=== PATIENT | female | born 1975 | race Caucasian/White ===

== ENCOUNTER 2017-12-22 18:22 | Inpatient (IN) | payer BC ==
[~2017-12-22] VITALS: Ht 172.7 cm; Wt 81.6 kg
[2017-12-22 18:22] VITALS: BP_SYST 112
[~2017-12-22 18:22] MED LIST: BUPIVACAINE /PF 0.25% 30 ML VIAL INJ ONE; CEFAZOLIN 1 GM IVPB PREMIX 50 ML IV ONE; DEXAMETHASONE SOD PHOSPHATE 4 MG/ML VIAL IVP ONE; GLYCOPYRROLATE 0.2 MG/ML VIAL IJ ONE; LIDOCAINE 1% 10 MG/ML, 20 ML MDV INJ ONE; LR 1,000 ML IV.SOLN IV ONE; MIDAZOLAM HCL 5 MG/5 ML VIAL IVP ONE; NEOSTIGMINE METHYLSULFATE 1 MG/ML, 10 ML VIAL IVP ONE; ONDANSETRON HCL 4 MG/2 ML VIAL IVP ONE; PROPOFOL 200MG/ 20ML VIAL (DIPRIVAN) IV ONE; ROCURONIUM BROMIDE 10 MG/ML (ZEMURON) IV ONE; SEVOFLURANE 15 MIN GAS INH ONE; SUCCINYLCHOLINE CHLORIDE 20 MG/ML(QUELICIN) IVP ONE; fentaNYL CITRATE/PF 100 MCG/2 ML AMP IVP ONE
[2017-12-22 19:15] LABS: BASOPHILS % (AUTO) 0.3 % (0.0-2.0); EOSINOPHILS % (AUTO) 0.1 % (0.0-4.0); HEMATOCRIT 39.7 % (36-48); HEMOGLOBIN 13.2 g/dL (12.0-16.0); LYMPHOCYTES # (AUTO) 0.5 K/uL (1.0-5.5); MEAN CORPUSCULAR HEMOGLOBIN 29 pg (27-31); MEAN CORPUSCULAR HGB CONC 33 % (32-36); MEAN CORPUSCULAR VOLUME 87 fL (79.0-98.0); MONOCYTES # (AUTO) 0.9 K/uL (0.0-1.0); MONOCYTES % (AUTO) 7.8 % (1.7-9.3); NEUTROPHILS # (AUTO) 10.4 K/uL (1.8-7.7); NEUTROPHILS % (AUTO) 87.8 % (40.0-70.0); PLATELET COUNT (AUTO) 286 K/uL (130-430); RED BLOOD CELL COUNT(AUTO) 4.57 MIL/uL (4.2-6.2); RED CELL DISTRIBUTION WIDTH 11.5 % (9.0-15.0); WHITE BLOOD COUNT (AUTO) 11.8 K/uL (4.8-10.8)
[2017-12-22 19:22] LABS: ANION GAP 13 (5-15); CHLORIDE 95 mmol/L (98-107); CREATININE 0.56 mg/dL (0.55-1.30); GLUCOSE 140 mg/dL (70-99); POTASSIUM 3.7 mmol/L (3.5-5.1); SODIUM SERUM 133 mmol/L (136-145); UREA NITROGEN, BLOOD 10 mg/dL (8-21)
[2017-12-22 19:25] LABS: PROTHROMBIN TIME 9.9 SECS (9.5-12.5)
[2017-12-22 19:26] LABS: GFR AFRICAN AMERICAN 153 mL/min (>90)
[2017-12-22 19:35] LABS: ALANINE AMINOTRANSFERASE 30 U/L (12-78); ALBUMIN 3.5 g/dL (3.4-4.8); AMYLASE 40 U/L (0-100); ASPARTATE AMINOTRANSFERASE 18 U/L (10-37); LIPASE 90 U/L (73-393); TOTAL BILIRUBIN 0.5 mg/dL (0.0-1.0)
[2017-12-22 20:45] LABS: BLOOD, URINE 3+ (NEGATIVE); CLARITY/URINE CLEAR (CLEAR); COLOR,URINE YELLOW (YELLOW); GLUCOSE,URINE NEGATIVE (NEGATIVE); KETONES,URINE 3+ (NEGATIVE); LEUKOCYTE ESTERASE ,URINE NEGATIVE (NEGATIVE); NITRITE, URINE NEGATIVE (NEGATIVE); PROTEIN URINE TRACE (NEGATIVE); UROBILINOGEN,URINE 0.2 (0.2-1.0)
[2017-12-22 20:52] LABS: BILIRUBIN,URINE NEGATIVE (NEGATIVE)
[2017-12-22] MEDS ORDERED: NACL 0.9% 1,000 ML IV ONE (21:00)
[2017-12-22] MEDS ORDERED: MORPHINE 4 MG/ML INJ. SYRINGE IVP ONE (21:00)
[2017-12-22] MEDS ORDERED: SPIR25TA4 PO (21:02)
[2017-12-22] MEDS ORDERED: TRAZ-123 PO (21:02)
[2017-12-22] MEDS ORDERED: ACAM333T9 PO (21:02)
[2017-12-22] MEDS ORDERED: SERT-131 PO (21:02)
[2017-12-22 21:04] LABS: BACTERIA,URINE FEW /HPF (None Seen); RBC,URINE 20-50 /HPF (0-3)
[2017-12-22 21:05] LABS: MUCUS,URINE None Seen /LPF (None Seen)
[2017-12-22] MEDS ORDERED: metroNIDAZOLE 500 mg/NS 100 ML IV ONE (21:30)
[2017-12-22] MEDS ORDERED: PANTOPRAZOLE SODIUM 40 MG/VIAL (PROTONIX) IVP ONE (21:45)
[2017-12-22] MEDS ORDERED: LORazepam 2 MG/ML VIAL IVP PRN (21:45)
[2017-12-22 21:53] VITALS: BP_SYST 117
[2017-12-22] MEDS: MORPHINE 2 MG/ML INJ. SYRINGE IVP PRN (23:55)
[2017-12-23] MEDS: KCL 20 mEq in NS 1000 mL 1,000 ML IV SCH ×3 (00:21→19:23)
[2017-12-23 01:11] VITALS: BP_SYST 120
[2017-12-23] MEDS: HYDROmorphone 1 MG INJ. 1 MG/ML AMPUL IVP PRN ×4 (02:31→19:23)
[2017-12-23] MEDS: MORPHINE 2 MG/ML INJ. SYRINGE IVP PRN (06:20)
[2017-12-23 06:49] LABS: BASOPHILS % (AUTO) 0.4 % (0.0-2.0); EOSINOPHILS % (AUTO) 0.1 % (0.0-4.0); HEMATOCRIT 38.5 % (36-48); HEMOGLOBIN 13.2 g/dL (12.0-16.0); LYMPHOCYTES # (AUTO) 0.7 K/uL (1.0-5.5); LYMPHOCYTES % (AUTO) 6.2 % (20.5-51.5); MEAN CORPUSCULAR HEMOGLOBIN 30 pg (27-31); MEAN CORPUSCULAR HGB CONC 34 % (32-36); MEAN CORPUSCULAR VOLUME 87 fL (79.0-98.0); MONOCYTES # (AUTO) 1.5 K/uL (0.0-1.0); NEUTROPHILS # (AUTO) 9.1 K/uL (1.8-7.7); NEUTROPHILS % (AUTO) 80.3 % (40.0-70.0); PLATELET COUNT (AUTO) 266 K/uL (130-430); RED BLOOD CELL COUNT(AUTO) 4.43 MIL/uL (4.2-6.2); RED CELL DISTRIBUTION WIDTH 11.3 % (9.0-15.0); WHITE BLOOD COUNT (AUTO) 11.3 K/uL (4.8-10.8)
[2017-12-23 07:39] LABS: ALBUMIN 2.8 g/dL (3.4-4.8); BILIRUBIN,DIRECT 0.1 mg/dL (0.0-0.3); CALCIUM 8.3 mg/dL (8.4-11.0); CREATININE 0.57 mg/dL (0.55-1.30); POTASSIUM 3.6 mmol/L (3.5-5.1); THYROID STIMULATING HORMONE 1.58 uIu/mL (0.34-4.82); TOTAL BILIRUBIN 0.4 mg/dL (0.0-1.0)
[2017-12-23 08:00] VITALS: BP_SYST 123
[2017-12-23 08:33] LABS: HCG,QUAL RESULT NEGATIVE (NEGATIVE)
[2017-12-23 12:22] VITALS: BP_SYST 120
[2017-12-23] MEDS: LEVOFLOXACIN 500 MG/D5W 100 ML IV SCH (15:00)
[2017-12-23 16:22] VITALS: BP_SYST 136
[2017-12-23] MEDS: metroNIDAZOLE 500 MG TABLET PO SCH ×2 (16:59→21:21)
[2017-12-23] MEDS: ACETAMINOPHEN 650 MG/20.3 ML UDC PO PRN ×2 (17:02→21:21)
[2017-12-23 20:15] VITALS: BP_SYST 111
[2017-12-24 00:32] VITALS: BP_SYST 104
[2017-12-24] MEDS: HYDROmorphone 1 MG INJ. 1 MG/ML AMPUL IVP PRN ×3 (05:00→22:35)
[2017-12-24] MEDS: KCL 20 mEq in NS 1000 mL 1,000 ML IV SCH ×2 (05:02→14:51)
[2017-12-24] MEDS: metroNIDAZOLE 500 MG TABLET PO SCH ×3 (05:03→21:14)
[2017-12-24 06:38] LABS: BASOPHILS % (AUTO) 0.4 % (0.0-2.0); EOSINOPHILS # (AUTO) 0.2 K/uL (0.0-0.4); EOSINOPHILS % (AUTO) 3.7 % (0.0-4.0); HEMATOCRIT 35.4 % (36-48); HEMOGLOBIN 12.4 g/dL (12.0-16.0); LYMPHOCYTES % (AUTO) 18.2 % (20.5-51.5); MEAN CORPUSCULAR HEMOGLOBIN 30 pg (27-31); MEAN CORPUSCULAR HGB CONC 35 % (32-36); MEAN CORPUSCULAR VOLUME 87 fL (79.0-98.0); MONOCYTES # (AUTO) 0.8 K/uL (0.0-1.0); MONOCYTES % (AUTO) 15.3 % (1.7-9.3); NEUTROPHILS # (AUTO) 3.4 K/uL (1.8-7.7); NEUTROPHILS % (AUTO) 62.4 % (40.0-70.0); PLATELET COUNT (AUTO) 281 K/uL (130-430); RED BLOOD CELL COUNT(AUTO) 4.07 MIL/uL (4.2-6.2); RED CELL DISTRIBUTION WIDTH 11.4 % (9.0-15.0); WHITE BLOOD COUNT (AUTO) 5.4 K/uL (4.8-10.8)
[2017-12-24 06:53] LABS: ALBUMIN 2.7 g/dL (3.4-4.8); BILIRUBIN,DIRECT 0.1 mg/dL (0.0-0.3); CALCIUM 8.4 mg/dL (8.4-11.0); CREATININE 0.53 mg/dL (0.55-1.30); POTASSIUM 3.6 mmol/L (3.5-5.1); TOTAL BILIRUBIN 0.3 mg/dL (0.0-1.0)
[2017-12-24 08:40] VITALS: BP_SYST 122
[2017-12-24 12:41] VITALS: BP_SYST 120
[2017-12-24] MEDS: LEVOFLOXACIN 500 MG/D5W 100 ML IV SCH (12:49)
[2017-12-24] MEDS: MORPHINE 2 MG/ML INJ. SYRINGE IVP PRN (12:52)
[2017-12-24] MEDS: ONDANSETRON HCL 4 MG/2 ML VIAL IVP PRN ×2 (14:57→21:14)
[2017-12-24 16:47] VITALS: BP_SYST 117
[2017-12-24] MEDS: fentaNYL CITRATE/PF 100 MCG/2 ML AMP ONE ×2 (19:50→20:00)
[2017-12-24] MEDS ORDERED: KETOROLAC TROMETHAMINE 30 MG VIAL IVP ONE (20:00)
[2017-12-24] MEDS ORDERED: NALOXONE HCL 0.4 MG/ML AMP (NARCAN) IVP ONE (20:00)
[2017-12-24] MEDS ORDERED: ONDANSETRON HCL 4 MG/2 ML VIAL IVP ONE (20:00)
[2017-12-24] MEDS ORDERED: MEPERIDINE HCL/PF 25 MG/ML DISP.SYRIN IVP PRN (20:00)
[2017-12-24] MEDS ORDERED: HYDROmorphone 1 MG INJ. 1 MG/ML AMPUL IVP PRN (20:00)
[2017-12-24] MEDS ORDERED: MIDAZOLAM HCL 5 MG/5 ML VIAL IVP PRN (20:00)
[2017-12-24] MEDS ORDERED: fentaNYL CITRATE/PF 100 MCG/2 ML AMP IVP PRN (20:00)
[2017-12-24] MEDS ORDERED: fentaNYL CITRATE/PF 100 MCG/2 ML AMP ONE (20:18)
[2017-12-24 20:56] VITALS: BP_SYST 126
[2017-12-24] MEDS: LORazepam 2 MG/ML VIAL IVP PRN (21:04)
[2017-12-25 00:01] VITALS: BP_SYST 131
[2017-12-25] MEDS: KCL 20 mEq in NS 1000 mL 1,000 ML IV SCH ×3 (01:00→21:02)
[2017-12-25] MEDS: HYDROmorphone 1 MG INJ. 1 MG/ML AMPUL IVP PRN ×5 (02:14→21:09)
[2017-12-25 04:09] VITALS: BP_SYST 121
[2017-12-25] MEDS: LORazepam 2 MG/ML VIAL IVP PRN (04:54)
[2017-12-25] MEDS: metroNIDAZOLE 500 MG TABLET PO SCH ×3 (06:26→21:03)
[2017-12-25 06:48] LABS: BASOPHILS % (AUTO) 0.2 % (0.0-2.0); EOSINOPHILS % (AUTO) 0.1 % (0.0-4.0); HEMOGLOBIN 12.8 g/dL (12.0-16.0); LYMPHOCYTES # (AUTO) 0.5 K/uL (1.0-5.5); MEAN CORPUSCULAR HEMOGLOBIN 29 pg (27-31); MEAN CORPUSCULAR HGB CONC 34 % (32-36); MEAN CORPUSCULAR VOLUME 87 fL (79.0-98.0); MONOCYTES # (AUTO) 1.1 K/uL (0.0-1.0); MONOCYTES % (AUTO) 8.2 % (1.7-9.3); NEUTROPHILS # (AUTO) 11.6 K/uL (1.8-7.7); PLATELET COUNT (AUTO) 298 K/uL (130-430); RED BLOOD CELL COUNT(AUTO) 4.36 MIL/uL (4.2-6.2); RED CELL DISTRIBUTION WIDTH 11.7 % (9.0-15.0); WHITE BLOOD COUNT (AUTO) 13.2 K/uL (4.8-10.8)
[2017-12-25 07:06] LABS: ALBUMIN 2.7 g/dL (3.4-4.8); BILIRUBIN,DIRECT 0.1 mg/dL (0.0-0.3); CALCIUM 8.5 mg/dL (8.4-11.0); CREATININE 0.61 mg/dL (0.55-1.30); POTASSIUM 3.3 mmol/L (3.5-5.1); TOTAL BILIRUBIN 0.3 mg/dL (0.0-1.0)
[2017-12-25 08:00] VITALS: BP_SYST 119
[2017-12-25 11:17] VITALS: BP_SYST 119
[2017-12-25 11:41] LABS: NEUTROPHILS % (AUTO) 87.5 % (40.0-70.0)
[2017-12-25] MEDS: LEVOFLOXACIN 500 MG/D5W 100 ML IV SCH (12:25)
[2017-12-25] MEDS: ACETAMINOPHEN 650 MG/20.3 ML UDC PO PRN (12:28)
[2017-12-25] MEDS ORDERED: POTASSIUM CHLORIDE 20 MEQ TAB.PRT.SR PO ONE (13:45)
[2017-12-25] MEDS ORDERED: HYDROcodone/ACETAMIN 5-325 MG TAB (NORCO/ VICODIN) PO PRN (15:00)
[2017-12-25 15:43] VITALS: BP_SYST 110
[2017-12-25 20:00] VITALS: BP_SYST 126
[2017-12-26] MEDS: ACETAMINOPHEN 650 MG/20.3 ML UDC PO PRN
[2017-12-26 01:11] VITALS: BP_SYST 116
[2017-12-26] MEDS: metroNIDAZOLE 500 MG TABLET PO SCH ×3 (05:58→21:10)
[2017-12-26] MEDS: KCL 20 mEq in NS 1000 mL 1,000 ML IV SCH ×2 (05:58→17:31)
[2017-12-26] MEDS: HYDROmorphone 1 MG INJ. 1 MG/ML AMPUL IVP PRN ×2 (05:58→21:17)
[2017-12-26 06:40] LABS: CALCIUM 8.1 mg/dL (8.4-11.0); CREATININE 0.65 mg/dL (0.55-1.30); POTASSIUM 3.5 mmol/L (3.5-5.1)
[2017-12-26 08:00] VITALS: BP_SYST 127
[2017-12-26 12:14] VITALS: BP_SYST 129
[2017-12-26] MEDS: LEVOFLOXACIN 500 MG/D5W 100 ML IV SCH (12:53)
[2017-12-26] MEDS: MORPHINE 2 MG/ML INJ. SYRINGE IVP PRN (12:53)
[2017-12-26] MEDS: ONDANSETRON HCL 4 MG/2 ML VIAL IVP PRN (13:15)
[2017-12-26] MEDS ORDERED: NA PHOS,M-B/NA PHOS,DI-BA 118 ML (FLEET ENEMA) RC ONE (14:45)
[2017-12-26] MEDS ORDERED: MILK OF MAGNESIA 30 ML UDC PO PRN (14:45)
[2017-12-26 17:20] VITALS: BP_SYST 116
[2017-12-26 20:00] VITALS: BP_SYST 124
[2017-12-27 00:57] VITALS: BP_SYST 110
[2017-12-27] MEDS: ACETAMINOPHEN 650 MG/20.3 ML UDC PO PRN (03:07)
[2017-12-27] MEDS: KCL 20 mEq in NS 1000 mL 1,000 ML IV SCH ×2 (03:07→13:09)
[2017-12-27] MEDS: metroNIDAZOLE 500 MG TABLET PO SCH ×2 (06:13→13:08)
[2017-12-27 08:01] VITALS: BP_SYST 108
[2017-12-27 08:03] LABS: BASOPHILS % (AUTO) 0.2 % (0.0-2.0); EOSINOPHILS # (AUTO) 0.1 K/uL (0.0-0.4); EOSINOPHILS % (AUTO) 1.1 % (0.0-4.0); HEMATOCRIT 32.5 % (36-48); HEMOGLOBIN 10.9 g/dL (12.0-16.0); LYMPHOCYTES # (AUTO) 0.9 K/uL (1.0-5.5); LYMPHOCYTES % (AUTO) 10.3 % (20.5-51.5); MEAN CORPUSCULAR HEMOGLOBIN 29 pg (27-31); MEAN CORPUSCULAR HGB CONC 34 % (32-36); MEAN CORPUSCULAR VOLUME 87 fL (79.0-98.0); MONOCYTES # (AUTO) 1.2 K/uL (0.0-1.0); MONOCYTES % (AUTO) 14.2 % (1.7-9.3); NEUTROPHILS # (AUTO) 6.5 K/uL (1.8-7.7); NEUTROPHILS % (AUTO) 74.2 % (40.0-70.0); PLATELET COUNT (AUTO) 265 K/uL (130-430); RED BLOOD CELL COUNT(AUTO) 3.74 MIL/uL (4.2-6.2); RED CELL DISTRIBUTION WIDTH 11.7 % (9.0-15.0); WHITE BLOOD COUNT (AUTO) 8.7 K/uL (4.8-10.8)
[2017-12-27 08:16] LABS: ALBUMIN 2.2 g/dL (3.4-4.8); CALCIUM 8.3 mg/dL (8.4-11.0); CREATININE 0.55 mg/dL (0.55-1.30); TOTAL BILIRUBIN 0.3 mg/dL (0.0-1.0)
[2017-12-27 11:17] VITALS: BP_SYST 116
[2017-12-27] MEDS: LEVOFLOXACIN 500 MG/D5W 100 ML IV SCH (13:08)
[2017-12-27 14:41] VITALS: BP_SYST 115
[2017-12-27 15:17] VITALS: BP_SYST 115
[2017-12-27] MEDS ORDERED: LEVO500T20 PO (16:20)
[2017-12-27] MEDS ORDERED: METR500T PO (16:21)
== END 2017-12-27 17:30 | disposition home or self-care (01) | DRG 418 ==
LOC: SED 18:22 → SMU 21:24 → STU 21:50 → SMU 12-23 13:55
PROVIDERS: ADMIT Internal Medicine; ATTEND Internal Medicine
PROC: 0FT44ZZ Resection of Gallbladder, Percutaneous Endoscopic Approach (ICD-10-PCS; principal; 2017-12-24 17:00)
DX: K80.00 Calculus of gallbladder with acute cholecystitis without obstruction (principal); E44.0 Moderate protein-calorie malnutrition; F10.10 Alcohol abuse, uncomplicated; Y90.9 Presence of alcohol in blood, level not specified; E78.5 Hyperlipidemia, unspecified; K59.00 Constipation, unspecified; F41.9 Anxiety disorder, unspecified; F32.9 Major depressive disorder, single episode, unspecified; R31.29 Other microscopic hematuria; Z79.899 Other long term (current) drug therapy; Z68.27 Body mass index [BMI] 27.0-27.9, adult; Z80.0 Family history of malignant neoplasm of digestive organs
CPT/HCPCS: 36415; 71045; 76700-TC; 78226; 80048; 80053; 80076; 81000-TC; 81025; 82150-TC; 83690-TC; 83735-TC; 84443-TC; 84484; 84703; 85025; 85610-TC; 85730-TC; 87040-TC; 87070-TC; 87075-TC; 87081; 87086; 87186-TC; 88304; 93005; 96365; 96366; 96375; 99285; A9537; C9113; J0330; J0690; J1100; J1170; J1956; J2001; J2060; J2250; J2270; J2405; J2704; J2710; J3010; J3480; J3490; J7030; J7120

== ENCOUNTER 2019-11-25 23:21 | Emergency (ER) | payer BC ==
[~2019-11-25] VITALS: Ht 172.7 cm; Wt 90.7 kg
[~2019-11-25 23:21] MED LIST changes: +ACAM333T9 PO; -BUPIVACAINE /PF 0.25% 30 ML VIAL INJ ONE; -CEFAZOLIN 1 GM IVPB PREMIX 50 ML IV ONE; -DEXAMETHASONE SOD PHOSPHATE 4 MG/ML VIAL IVP ONE; -GLYCOPYRROLATE 0.2 MG/ML VIAL IJ ONE; +LEVO500T20 PO; -LIDOCAINE 1% 10 MG/ML, 20 ML MDV INJ ONE; -LR 1,000 ML IV.SOLN IV ONE; +METR500T PO; -MIDAZOLAM HCL 5 MG/5 ML VIAL IVP ONE; -NEOSTIGMINE METHYLSULFATE 1 MG/ML, 10 ML VIAL IVP ONE; -ONDANSETRON HCL 4 MG/2 ML VIAL IVP ONE; -PROPOFOL 200MG/ 20ML VIAL (DIPRIVAN) IV ONE; -ROCURONIUM BROMIDE 10 MG/ML (ZEMURON) IV ONE; +SERT-131 PO; -SEVOFLURANE 15 MIN GAS INH ONE; +SPIR25TA6 PO; -SUCCINYLCHOLINE CHLORIDE 20 MG/ML(QUELICIN) IVP ONE; +TRAZ-250 PO; -fentaNYL CITRATE/PF 100 MCG/2 ML AMP IVP ONE
[2019-11-25 23:38] VITALS: BP_SYST 122
--- NOTE | 2019-11-25 23:40 | NUR ---
Patient to ER bed 6 to gown for evaluation. Side rails up.
--- NOTE | 2019-11-25 23:45 | NUR ---
Patient came to ER. C/O Laceration left middle finger x today. Patient states "cut myself while cleaned broken glasses, no stop bleeding at home." A/O,X4, left middle finger laceration 1 cm, bleeding control after clean with NSS/Betadine, vss.
[2019-11-26] MEDS ORDERED: DIPH-TET-PERTUS Vaccine 0.5 ML VIAL (ADACEL) I.M. ONE
[2019-11-26] MEDS ORDERED: LIDOCAINE/EPI 1% 1:100000 20 ML VIAL INJ ONE
--- NOTE | 2019-11-26 00:02 | NUR ---
ER Dr. Sellers at bedside examining patient.
[2019-11-26] MEDS ORDERED: LIDOCAINE MPF 1% 50 MG/5 ML AMP INJ ONE (00:15)
--- NOTE | 2019-11-26 00:21 | NUR ---
Patient has a 1 cm laceration to left middle finger. Dr. Sellers applied sutures using sterile technique. Edges well approximated. Site cleansed with NSS and Betadine. Dressing of Bacitracin applied to site. No bleeding noted. Pt tolerated well.
[2019-11-26] MEDS ORDERED: LIDOCAINE 1%, 20 ML MDV 20 ML ONE (00:30)
[2019-11-26 00:40] VITALS: BP_SYST 122
--- NOTE | 2019-11-26 00:40 | NUR ---
Patient given written and verbal discharge instructions and verbalizes understanding. ER MD discussed with patient the results and treatment provided. Patient in stable condition. ID arm band removed. No Rx given. Patient educated on pain management and to follow up with PMD. Pain Scale 1/10. Opportunity for questions provided and answered. Medication side effect fact sheet provided.
[2019-11-26] MEDS ORDERED: BACITRACIN 1 GM OINT TP ONE (00:44)
== END 2019-11-26 00:40 | disposition home or self-care (01) ==
LOC: SED 23:21
DX: S61.213A Laceration without foreign body of left middle finger without damage to nail, initial encounter (principal); Z79.899 Other long term (current) drug therapy; W25.XXXA Contact with sharp glass, initial encounter; Y93.G1 Activity, food preparation and clean up; Y92.098 Other place in other non-institutional residence as the place of occurrence of the external cause; Y99.8 Other external cause status
CPT/HCPCS: 12001; 90471; 90715; 99283; J2001

== ENCOUNTER 2020-11-02 10:00 | Emergency (ER) | payer BC ==
[~2020-11-02] VITALS: Ht 172.7 cm; Wt 87.5 kg
[2020-11-02 10:00] VITALS: BP_SYST 159
[2020-11-02] MEDS ORDERED: ALBUTEROL SULFATE 0.083% 2.5 MG/3 ML VIAL.NEB INH ONE (10:30)
[2020-11-02] MEDS ORDERED: IPRATROPIUM BROM 0.5 MG/2.5 ML VIAL.NEB (ATROVENT) INH ONE (10:30)
[2020-11-02] MEDS ORDERED: predniSONE 20 MG TABLET PO ONE (10:30)
[2020-11-02 10:54] LABS: BASOPHILS % (AUTO) 0.5 % (0.0-2.0); EOSINOPHILS # (AUTO) 0.1 K/uL (0.0-0.4); EOSINOPHILS % (AUTO) 0.6 % (0.0-4.0); HEMATOCRIT 40.5 % (36-48); HEMOGLOBIN 13.6 g/dL (12.0-16.0); LYMPHOCYTES # (AUTO) 1.2 K/uL (1.0-5.5); LYMPHOCYTES % (AUTO) 15.1 % (20.5-51.5); MEAN CORPUSCULAR HEMOGLOBIN 30 pg (27-31); MEAN CORPUSCULAR HGB CONC 34 % (32-36); MEAN CORPUSCULAR VOLUME 90 fL (79.0-98.0); MONOCYTES # (AUTO) 0.7 K/uL (0.0-1.0); MONOCYTES % (AUTO) 8.2 % (1.7-9.3); NEUTROPHILS # (AUTO) 6.1 K/uL (1.8-7.7); NEUTROPHILS % (AUTO) 75.6 % (40.0-70.0); PLATELET COUNT (AUTO) 298 K/uL (130-430); RED BLOOD CELL COUNT(AUTO) 4.52 MIL/uL (4.2-6.2); RED CELL DISTRIBUTION WIDTH 13.3 % (9.0-15.0); WHITE BLOOD COUNT (AUTO) 8.1 K/uL (4.8-10.8)
[2020-11-02 11:01] LABS: CALCIUM 8.8 mg/dL (8.4-11.0); CREATININE 0.74 mg/dL (0.55-1.30); POTASSIUM 3.6 mmol/L (3.5-5.1)
[2020-11-02 11:12] LABS: ALBUMIN 3.5 g/dL (3.4-4.8); TOTAL BILIRUBIN 0.2 mg/dL (0.0-1.0)
[2020-11-02] MEDS ORDERED: ALBMDI INH ×2 (12:33→12:46)
[2020-11-02 12:43] VITALS: BP_SYST 108
[2020-11-02] MEDS ORDERED: LIB25 PO (13:06)
== END 2020-11-02 12:45 | disposition home or self-care (01) ==
LOC: SED 10:00
DX: R05 Cough (principal)
CPT/HCPCS: 36415; 71045; 80053; 83880; 84484; 85025; 93005; 94640; 99285; J7512; J7613